=== PATIENT | male | born 1930 | race African-American/Black ===

== ENCOUNTER 2018-06-02 18:52 | Emergency (ER) | payer OTHER ==
[~2018-06-02] VITALS: Ht 185.4 cm; Wt 84.6 kg
[2018-06-02 19:06] LABS: EOSINOPHILS % (AUTO) 1.8 % (1.0-6.0); HEMATOCRIT 38.2 % (41-53); HEMOGLOBIN 12.9 g/dL (13.5-17.5); LYMPHOCYTES # (AUTO) 1.5 K/uL (1.0-4.8); LYMPHOCYTES % (AUTO) 16.1 % (22.0-44.0); MEAN CORPUSCULAR HEMOGLOBIN 28.8 pg (26.0-34.0); MEAN CORPUSCULAR HGB CONC 33.7 G/dL (31.0-37.0); MEAN CORPUSCULAR VOLUME 86 fL (80-100); MONOCYTES # (AUTO) 0.7 K/uL (0.1-1.0); MONOCYTES % (AUTO) 7.3 % (2.0-9.0); NEUTROPHILS # (AUTO) 6.8 K/uL (1.8-7.7); NEUTROPHILS % (AUTO) 73.8 % (40.0-70.0); PLATELET COUNT (AUTO) 160 K/uL (150-450); RED BLOOD CELL COUNT(AUTO) 4.47 MIL/uL (4.50-5.90); RED CELL DISTRIBUTION WIDTH 13.5 % (11.5-14.5)
[2018-06-02] MEDS ORDERED: RIVA1PAT11 PERC (19:09)
[2018-06-02] MEDS ORDERED: TERA5 PO (19:09)
[2018-06-02] MEDS ORDERED: ASPI81 PO (19:09)
[2018-06-02] MEDS ORDERED: ERGO2000 PO (19:09)
[2018-06-02] MEDS ORDERED: LOVA20 PO (19:09)
[2018-06-02] MEDS ORDERED: DONE10TA8 PO (19:09)
[2018-06-02] MEDS ORDERED: METF-514 PO (19:09)
[2018-06-02] MEDS ORDERED: LORA10TA7 PO (19:09)
[2018-06-02] MEDS ORDERED: FURO40 PO (19:09)
[2018-06-02 19:33] LABS: INR 1.2 (0.9-1.1); PROTHROMBIN TIME 12.1 SEC (9.4-11.6)
[2018-06-02] MEDS ORDERED: SODIUM CHLORIDE 0.9% 100 ML ONE (19:33)
[2018-06-02] MEDS ORDERED: IOVERSOL 350 MG/ML 100 ML VIAL ONE (19:33)
[2018-06-02 19:38] LABS: ANION GAP 15 mmol/L (8-16); CALCIUM, TOTAL 9.3 mg/dL (8.8-10.5); CARBON DIOXIDE 25 mmol/L (22-29); CHLORIDE 107 mmol/L (98-107); CREATININE 3.65 mg/dL (0.60-1.30); GLOMERULAR FILTR. RATE CALC 19 mL/min (>60); GLUCOSE,RANDOM 156 mg/dL (70-110); POTASSIUM 4.2 mmol/L (3.5-5.1); SODIUM SERUM 147 mmol/L (136-145); UREA NITROGEN, BLOOD 70 mg/dL (7-18)
[2018-06-02] MEDS ORDERED: ASPIRIN 325 MG EC TABLET PO ONE (20:00)
[2018-06-02 20:04] LABS: ALANINE AMINOTRANSFERASE 27 U/L (12-78); ALBUMIN 3.8 g/dL (3.4-5.0); ALKALINE PHOSPHATASE 131 U/L (46-116); ASPARTATE AMINOTRANSFERASE 20 U/L (15-37); BILIRUBIN,TOTAL 0.4 mg/dL (0.1-1.0); CREATINE KINASE MB 1.6 ng/mL (0-5); CREATINE KINASE, TOTAL 221 U/L (39-308); TOTAL PROTEIN, SERUM 7.6 g/dL (6.4-8.2)
[2018-06-02 20:06] LABS: B-TYPE NATRIURETIC PEPTIDE 43 pg/mL (0-100)
[2018-06-02 20:15] LABS: APPEARANCE,URINE CLOUDY (CLEAR); BILIRUBIN,URINE NEGATIVE (NEGATIVE); GLUCOSE, URINE (UA) NEGATIVE (NEGATIVE); KETONES,URINE NEGATIVE (NEGATIVE); LEUKOCYTE ESTERASE ,URINE NEGATIVE (NEGATIVE); NITRATE,URINE NEGATIVE (NEGATIVE); OCCULT BLOOD,URINE NEGATIVE (NEGATIVE); PROTEIN,URINE NEGATIVE (NEGATIVE); UROBILINOGEN,URINE 0.2 mg/dL (<=1.0)
[2018-06-02] MEDS ORDERED: ASPIRIN 300 MG RECTAL SUPPOSITORY PR ONE (20:30)
[2018-06-02 22:20] VITALS: BP 118/69
== END 2018-06-02 22:30 | disposition short-term general hospital (02) ==
LOC: EMS 18:53
DX: I65.1 Occlusion and stenosis of basilar artery (principal); I63.9 Cerebral infarction, unspecified; R53.1 Weakness; N28.9 Disorder of kidney and ureter, unspecified; I10 Essential (primary) hypertension; E11.9 Type 2 diabetes mellitus without complications; E78.00 Pure hypercholesterolemia, unspecified; Z79.82 Long term (current) use of aspirin; Z79.84 Long term (current) use of oral hypoglycemic drugs
CPT/HCPCS: 36415; 51702; 70450; 70496; 71045; 80053; 81003; 82550; 82553; 82962; 83880; 84484; 85025; 85610; 85730; 93005; 99291; J7050; Q9967